=== PATIENT | male | born 1975 | race Two or more races ===

== ENCOUNTER 2020-06-24 11:47 | Outpatient (CLI) | payer OTHER | END 2020-06-24 12:20 | disposition home or self-care (01) | LOC: OFIC 805 11:47 | PROVIDERS: ATTEND Otolaryngology | DX: R07.0 Pain in throat (principal); M54.2 Cervicalgia; G47.33 Obstructive sleep apnea (adult) (pediatric); R53.83 Other fatigue; J03.80 Acute tonsillitis due to other specified organisms; K21.9 Gastro-esophageal reflux disease without esophagitis ==